=== PATIENT | male | born 1965 | race Caucasian/White ===

== ENCOUNTER → 2018-02-19 | Day surgery (SDC) | payer OTHER ==
[~2018-02-19] VITALS: Ht 172.7 cm; Wt 95.7 kg
[~2018-02-19] MED LIST: METHADONE H5 MG/5 M2 PO
--- NOTE | 2018-02-19 09:21 | Operative Report ---
Operative/Inv Procedure Report Surgery Date: 02/19/18 Name of Procedure: right ESWL of kidney stone and ureteral stone with cystoscopy and stent placement Pre-Operative Diagnosis: right renal stone and ureteral stone Post-Operative Diagnosis: same Estimated Blood Loss: scant Surgeon/Policy Service Coordinator: Magaly rFegoso MD Anesthesia: local monitored anesthesi Drains: 6x26cm stent Complications: none Condition: stable Operative Indication: right renal and ureteral stone Operative/Procedure Note Note: 52yo male with a hx of kidney stones. He had one episode before which required surgical intervention with ESWL. He admits to not drinking enough water. He has no irritative urinary sx or voiding issues or urinary incontinence. He has no hx of UTIs but has been experiencing gross hematuria. He wishes to have the kidney and ureteral stone that was found on imaging to be addressed with ESWL. He was counseled that he would need a stent as well for optimal passage and safety. He was given the risks, benefits and alternatives of the surgery and all questions were answered. Patient was marked on the right side and consent was signed. He was taken to the operating room and lay down in a supine position. Timeout was performed. IV antibiotics were infused. He was placed in a dorsal lithotomy position and prepped and draped int the standard sterile fashion. Cystoscopy was performed and the right ureteral orifice was easily identified and this was cannulated with the straight guidewire without difficulty. The stent was placed over the wire and seen to be in good position. The wire was removed and the stent was still in good position. The bladder was drained and the cystoscope was removed. The ESWL was then started. The ureteral stone was addressed first. 3000 shocks were delivered. Power of 20 was ramped up to more quickly than in the kidney and the stone was well fragmented. It was visibily changed after the shockwave treatments. The ESWL was then focused on the larger renal stone 7mm and then the 5mm. A total of 2500 shocks were delivered while ramping up to a power of 20. The stones were well fragmented at the end of the case for both stones in the kidney. Patient tolerated the procedure well. He was transferred to the recovery room in stable condition. Findings: two renal stones 7 and 5mm well fragmented after ESWL. 8mm midureteral stone well fragmented after ESWL.
== END ==
LOC: STS 05:19
DX: N20.2 Calculus of kidney with calculus of ureter (principal); Z87.442 Personal history of urinary calculi; J44.9 Chronic obstructive pulmonary disease, unspecified; F17.210 Nicotine dependence, cigarettes, uncomplicated; R31.0 Gross hematuria
CPT/HCPCS: J0690; J2250